=== PATIENT | female | born 1970 | race American Indian/Alaskan Native ===

== ENCOUNTER 2021-09-25 13:27 | Emergency (ER) | payer BC ==
--- NOTE | 2021-09-25 14:01 | XRay Report ---
CHEST 2 VIEWS INDICATION / CLINICAL INFORMATION: Chest Pain. COMPARISON: None available. FINDINGS: SUPPORT DEVICES: None. HEART / MEDIASTINUM: No significant abnormality. LUNGS / PLEURA: No significant pulmonary or pleural abnormality. No pneumothorax. ADDITIONAL FINDINGS: No significant additional findings. IMPRESSION: 1. No acute findings. Signer Name: Modesto Weller MD Signed: 09/25/2021 1:57 PM Workstation Name: [id number]
[2021-09-25 15:27] LABS: Eosinophils % (Auto) 1.2 % (0.0-4.3); Hematocrit 41.3 % (30.3-42.9); Lymphocytes # (Auto) 2.2 K/mm3 (1.2-5.4); Lymphocytes % (Auto) 20.4 % (13.4-35.0); Mean Corpuscular HGB Conc 32 % (30-34); Mean Corpuscular Volume 85 fl (79-97); Monocytes % (Auto) 5.4 % (0.0-7.3); Platelet Count 380 K/mm3 (140-440); Red Blood Count 4.86 M/mm3 (3.65-5.03)
[2021-09-25 15:31] LABS: Alanine Aminotransferase 14 units/L (7-56); BUN/Creatinine Ratio 13; Blood Urea Nitrogen 10 mg/dL (7-17); Calcium 9.2 mg/dL (8.4-10.2); Hemolysis Index 0; INR 0.85 (0.87-1.13); Partial Thromboplastin Time 26.5 Sec. (24.2-36.6)
[2021-09-25 15:35] LABS: Hemoglobin 13.2 gm/dl (10.1-14.3); Red Cell Distribution Width 15.4 % (13.2-15.2)
[2021-09-25 15:36] LABS: Basophils % (Auto) 0.4 % (0.0-1.8); Eosinophils # (Auto) 0.1 K/mm3 (0.0-0.4); Monocytes # (Auto) 0.6 K/mm3 (0.0-0.8)
[2021-09-25] MEDS ORDERED: KETOROLAC 30 MG/1 ML INJ IV ONE (16:05)
--- NOTE | 2021-09-25 16:06 | Emergency Department Report ---
HPI - General Chief Complaint: Chest Pain PUI?: No Time Seen by Provider: 09/25/21 14:30 - HPI HPI: This is a 50-year-old morbidly obese female who presents with complaints of approximately 1 to 1-1/2 years of persistent left chest pain. Patient complains of a "tightness" pain in her left chest associated with a persistent cough. She states that she has been seen by her primary care doctor as well as local emergency departments as well as at urgent care centers for the pain. She states that several months ago her mother tested positive for COVID although she had the same time tested negative. She states she was seen subsequently by medical provider and given steroids and "an antibiotic that begins with a D" and placed on an oral inhaler. She states however she was subsequently told by her doctor to discontinue taking Brio. She reports that she feels as though the pain is due to "muscle tightness" but states she also is still having a persistent white phlegm productive cough. The pain occurs only with coughing and with palpation and movement of her trunk. Pain does not occur and is not worsened with ambulation. She has no orthopnea or dyspnea on exertion. No pain or swelling in her ankles or legs. Patient reports she is not and has an indwelling IUD. Patient states "my mom told me I need to see a assembler body and I was wondering, can you refer me to one?" She denies any shortness of breath or difficulty breathing lightheadedness or dizziness syncope or presyncopal symptoms. She denies any tingling or numbness in her arms or legs. She states she has not taken any other medication for her symptoms. Pain currently 07/30. ED Past Medical Hx - Past Medical History Hx Asthma: Yes Additional medical history: Morbid obesity - Surgical History Past Surgical History?: No - Social History Smoking Status: Never Smoker Substance Use Type: None ED Review of Systems ROS: Stated complaint: RT SHOULDER PAIN Other details as noted in HPI Comment: All other systems reviewed and negative Respiratory: cough, shortness of breath, wheezing. denies: no symptoms reported, stridor Cardiovascular: chest pain. denies: dyspnea on exertion, orthopnea, edema, syncope, paroxysmal nocturnal dyspnea Gastrointestinal: denies: abdominal pain, nausea, vomiting, diarrhea, constipation, hematemesis, hematochezia Genitourinary: denies: urgency, dysuria, frequency, hematuria, discharge, abnormal menses, dyspareunia, other Musculoskeletal: other (Patient reports "muscle aches" in her left lateral chest wall x1 to 1-1/2 years). denies: back pain, joint swelling, arthralgia, myalgia Skin: denies: rash, lesions, change in color, change in hair/nails, pruritus Physical Exam - Physical Exam Vital Signs: Vital Signs 09/25/21 09/25/21 13:30 14:23 Temperature 99 F Pulse Rate 66 84 Respiratory 22 18 Rate Blood Pressure 138/69 125/74 [Left] O2 Sat by Pulse 96 99 Oximetry General: Gen: Patient is a morbidly obese female, sitting up in a chair in her examination room, typing on her personal cellular telephone, comfortable appearing, no drooling no stridor no respiratory distress, breathing unlabored, nontoxic-appearing HEENT: Normocephalic atraumatic pupils equally round and reactive to light extraocular muscles intact sclera anicteric Neck: Full range of motion, no midline spinal tenderness palpation, no JVD, no carotid bruits, no nuchal rigidity CVS: S1-S2 regular rate and rhythm with no gallops rubs or murmurs, chest wall demonstrates moderate reproducible tenderness palpation with light palpation, no obvious palpable masses or defects, skin to chest wall demonstrates no shingles zoster evident on or evidence of trauma no evidence of infection Pulmonary: Clear to auscultation bilaterally, no wheezes rales or rhonchi Abdomen: Soft nondistended nontender no guarding or rebound tenderness, no palpable deformities or step-offs, normal active bowel sounds, no hepatosplenomegaly, no pulsatile masses : Deferred Extremities: No cyanosis no clubbing no edema, intact distal peripheral pulses, Integumentary: Skin normal, no petechia no purpura no abscess no lacerations no evidence of trauma no evidence of infection Neuro: Patient is awake alert and oriented to person place time situation, mentating well, cranial nerves II through XII intact, no focal neurodeficits, sensation grossly tact Psych: Calm cooperative, mood affect normal ED Course Vital Signs 09/25/21 09/25/21 13:30 14:23 Temperature 99 F Pulse Rate 66 84 Respiratory 22 18 Rate Blood Pressure 138/69 125/74 [Left] O2 Sat by Pulse 96 99 Oximetry - Reevaluation(s) Reevaluation #1: 09/25/21 16:08 Patient is comfortable appearing, she is reassessed, denies any worsening or evolving symptoms symptoms, neither does she deny any new symptoms ED Medical Decision Making - Lab Data Result diagrams: 09/25/21 14:32 09/25/21 14:32 - EKG Data -: EKG Interpreted by Me EKG shows normal: sinus rhythm - EKG Data When compared to previous EKG there are: previous EKG unavailable Interpretation: no acute changes 09/25/21 timing of EKG is 1337 EKG interpreted by me: Ventricular rate 79 bpm. P waves are present in procedure QRS complex. Intervals normal. No ST segment depressions or elevations. No T wave flattening or inversions. No ectopy. No arrhythmia. Normal axis. Sinus rhythm. - Radiology Data Radiology results: report reviewed - Medical Decision Making This is a 50-year-old morbidly obese female with a history of asthma who presents with what she states is 1 to 1-1/2 years of persistent left-sided chest tightness going across the lateral part of her left chest wall, with associated cough and intermittent wheezing. Vitals are stable. 06:29pm: I was informed by the pt's RN, Evie, that the pt requested to have her peripheral IV removed and walked out of the ER. The pt eloped. Critical care attestation.: If time is entered above; I have spent that time in minutes in the direct care of this critically ill patient, excluding procedure time. ED Disposition Clinical Impression: Chest pain, Cough Disposition: 07 LEFT AWOL/ELOPED Is pt being admited?: No Does the pt Need Aspirin: No Condition: Stable Instructions: Nonspecific Chest Pain, Adult Referrals: GLENN ROBERTSON MD [Primary Care Provider] - 3-5 Days
[2021-09-25] MEDS ORDERED: methylPREDNISolone Sod Succinate 125 MG/2 ML INJ IV ONE (16:12)
[2021-09-25 17:28] VITALS: BP 129/61
--- NOTE | 2021-09-27 10:14 | Electrocardiograph Report ---
[facility] Test Date: 2021-09-25 Test Time: 13:37:28 Pat Name: SABRA SHAFER Department: Room: Gender: F Instrumentation Fitter: JONNA : 1970 Requested By: ED DOC Order Number: [id number] Reading MD: Donny Dominguez Measurements Intervals [place] Rate: 79 P: 45 NM: 164 QRS: 68 QRSD: 77 T: 44 QT: 438 QTc: 504 Interpretive Statements Sinus rhythm Probable left atrial enlargement Low voltage, precordial leads No previous ECG available for comparison Electronically Signed On 09-27-2021 10:14:27 EDT by Donny Dominguez
== END 2021-09-25 18:42 | disposition left against medical advice (07) ==
LOC: ED 13:27
DX: R07.9 Chest pain, unspecified (principal); R05.9 Cough, unspecified; F17.200 Nicotine dependence, unspecified, uncomplicated
CPT/HCPCS: 36415; 71046; 80053; 84484; 85025; 85610; 85730; 93005; 96374; 96375; 99284; J1885; J2930